=== PATIENT | female | born 2000 | race Caucasian/White ===

== ENCOUNTER 2021-06-12 09:26 | Emergency (ER) | payer MEDICAID ==
[~2021-06-12] VITALS: Ht 167.6 cm; Wt 65.9 kg
[2021-06-12 09:53] VITALS: TEMP 98
[2021-06-12 10:32] LABS: BASO % 0.3 % (0.0-2.0); EOS # 0.1 (0.0-0.7); EOS % 0.6 % (0-4.0); GRAN # 6.9 (1.4-6.5); GRAN % 79.3 % (42.2-75.2); HEMATOCRIT 39.9 % (37.0-47.0); HEMOGLOBIN 13.3 g/dl (12.5-16.0); LYMPH % 11.9 % (20.0-51.0); MEAN CELL VOLUME 86 fl (80.0-100.0); MEAN CORPUSCULAR HEMOGLOBIN 29 pg (27.0-31.0); MEAN CORPUSCULAR HGB CONC 33 g/dl (33.0-37.0); MEAN PLATELET VOLUME 9.5 fl (7.4-10.4); MONO # 0.7 (0.1-0.6); MONO % 7.6 % (1.7-9.3); PLATELET COUNT 352 K/mm3 (130-400); RED BLOOD COUNT 4.66 M/mm3 (4.10-5.30); REDCELL DISTRIBUTION WIDTH-CV 13.5 % (11.5-14.5)
[2021-06-12 10:44] LABS: ALBUMIN 4.4 gm/dL (3.5-5.0); BILIRUBIN,TOTAL 0.4 mg/dL (0.0-1.0); CALCIUM 9.3 mg/dL (8.4-10.2); CREATININE, serum 0.59 (0.52-1.25); POTASSIUM 4.1 mmol/L (3.4-5.0); TOTAL PROTEIN 7.5 gm/dL (6.4-8.2)
[2021-06-12 10:49] LABS: COLLECTION METHOD CLEAN CATCH
[2021-06-12 11:13] LABS: MUCOUS Present /lpf; PH 8 (5-8); URINE APPEARANCE Hazy; URINE BACTERIA None Seen /hpf; URINE BILIRUBIN Negative (NEGATIVE); URINE BLOOD Negative (NEGATIVE); URINE COLOR Yellow; URINE GLUCOSE Negative (NEGATIVE); URINE KETONE 1+ (NEGATIVE); URINE LEUKOCYTE ESTERASE Negative (NEGATIVE); URINE NITRATE Negative (NEGATIVE); URINE PROTEIN(semi-quant) 2+ (NEGATIVE); URINE UROBILINOGEN Negative (NEGATIVE)
[2021-06-12] MEDS ORDERED: REGLAN 10MG10 MG/TAB PO (12:12)
[2021-06-12 12:40] VITALS: BP 99/69; PULSE 66
== END 2021-06-12 12:41 | disposition home or self-care (01) ==
LOC: COL.ER 09:26
PROVIDERS: Emergency Medicine
DX: O21.9 Vomiting of pregnancy, unspecified (principal); Z3A.09 9 weeks gestation of pregnancy
CPT/HCPCS: J2765; J7030

== ENCOUNTER 2023-02-06 17:21 | Outpatient (CLI) | payer MEDICAID ==
[~2023-02-06] VITALS: Ht 167.6 cm; Wt 70.0 kg
[2023-02-06] VITALS (9 sets, daily range): BP systolic 108–131; BP diastolic 67–84; PULSE 75–111; TEMP 97.3–97.6
--- NOTE | 2023-02-06 17:20 | NUR ---
1720 - PATIENT AMBULATORY TO UNIT ACCOMPANIED BY FOB. PATIENT ORIENTED TO ROOM AND CHANGES INTO CHANGE INTO GOWN. 1728 - PATIENT ON MONITOR. PATIENT REPORTS TO LABOR AND DELIVERY WITH COMPLAINTS OF CONTRACTIONS FOR THE LAST 2 HOURS. DENIES BLOODY SHOW. PATIENT UNSURE IF LEAKING FLUID OR INCONTINENCE. PATIENT REPORTS GOOD MOVEMENT. PATIENT IS SCHEDULED FOR REPEAT C/S ON 03/01/23. PATIENT DENIES DESIRE FOR . 1742 - SVE PERFORMED BY LUÍS MOON. -3. AMNIOTRACE NEGATIVE. PLAN OF CARE REVIEWED. PATIENT AGREEABLE TO PLAN. ORAL HYDRATION PROVIDED. 1759 - MD LIGIA NOTIFIED VIA PHONE OF PATIENT ARRIVAL AND ABOVE EXAM. PLAN FOR REPEAT SVE IN 1 HOUR ORDERED BY . CARE ONGOING.
[~2023-02-06 17:21] MED LIST: REGLAN 10MG10 MG/TAB PO; ZOFRAN ODT4 MG PO
[2023-02-06] MEDS ORDERED: ZOLOFT 100MG100 MG PO (18:00)
[2023-02-06] MEDS ORDERED: PRENATAL TABLET PO (18:00)
--- NOTE | 2023-02-06 18:50 | NUR ---
PT SITTING UP TO VOMIT, STRIP BROKEN AND TRACING MATERNAL HR FOR APPROXIMATELY 2 MINUTES.
--- NOTE | 2023-02-06 19:26 | NUR ---
1916- PT SITTING UP AT BEDSIDE VOMITING, 600MLS OUT. 1926- PT STATES NEED TO USE BATHROOM BUT UNSURE IF NEEDS TO VOID OR HAVE BM. SVE PERFORMED, UNCHANGED. PT OFF THE MONITOR TO USE BATHROOM.
--- NOTE | 2023-02-06 21:00 | NUR ---
1950- PT SITTING UP, VOMITING 2035- PT SITTING UP, VOMITING.
--- NOTE | 2023-02-06 21:30 | NUR ---
2109- SITTING UP VOMITING. PT THEN UP TO THE BATHROOM. 2123- PT VOMITING. 2129- PT VOMITING.
--- NOTE | 2023-02-06 21:49 | NUR ---
MONITORING DC'D. MAY DC HOME PER DR. STRONG. PT TO CHANGE INTO OWN CLOTHES WHILE DISCHARGE PAPERWORK PREPARED.
--- NOTE | 2023-02-06 22:15 | NUR ---
DISCHARGE INSTRUCTIONS REVIEWED WITH PT AND FOB. PT CONTINUES TO BE UNCOMFORTABLE BUT IS NO LONGER CRYING WITH IRREGULAR CONTRACTIONS. NOTIFIED THAT SHE MAY HAVE A "STOMACH BUG" PER DR. STRONG. INSTRUCTED TO TAKE SIPS OF WATER, MAY TAKE TYLENOL AND BENADRYL IF NEEDED FOR PAIN AND SLEEP. [facility]CT [facility] IF NAUSEA AND VOMITING CONTINUES FOR 24 HOURS. RETURN TO UNIT IF WATER BREAKS, VAGINAL BLEEDING, OR CONTRACTIONS BECOME MORE CONSISTENT AND PAINFUL AGAIN. PT VERBALIZES UNDERSTANDING. DENIES QUESTIONS OR CONCERNS. OFF UNIT AMBULATORY FOR HOME.
== END 2023-02-06 22:15 | disposition home or self-care (01) ==
LOC: LDRO 17:21
DX: Z34.93 Encounter for supervision of normal pregnancy, unspecified, third trimester (principal); Z3A.35 35 weeks gestation of pregnancy
CPT/HCPCS: J1200; J2405; J3105; J7120

== ENCOUNTER 2023-02-07 02:21 | Inpatient (IN) | payer MEDICAID ==
[~2023-02-07] VITALS: Ht 167.6 cm; Wt 70.5 kg
[2023-02-07] VITALS (29 sets, daily range): BP systolic 99–155; BP diastolic 61–98; PULSE 64–100; TEMP 97.9–98.8
[~2023-02-07 02:21] MED LIST changes: +PRENATAL TABLET PO; +ZOLOFT 100MG100 MG PO
--- NOTE | 2023-02-07 02:25 | NUR ---
PT TO UNIT VIA WHEELCHAIR WITH COMPLAINTS OF CTX THAT HAVE CONTINUED SINCE HER PREVIOUS VISIT EARLIER IN THE EVENING. PT IS VERY UNCONTROLLED, HAVING TROUBLE SITTING STILL WHILE MONITORS ARE BEING PLACED. EFMX2 APPLIED, VS OBTAINED, SVE PERFORMED. PT INTERMITTENTLY VOMITING.
--- NOTE | 2023-02-07 02:38 | NUR ---
PT SITTING UP VOMITING.
--- NOTE | 2023-02-07 03:18 | NUR ---
0312- PHENERGAN 12.5 MG IV RUNNING PIGGYBACK TO LR BOLUS. 0318- CATH UA COLLECTED.
[2023-02-07 03:24] LABS: COLLECTION METHOD CATHETER
[2023-02-07 03:28] LABS: HEMOGLOBIN 11.5 g/dl (12.5-16.0); MEAN CELL VOLUME 83 fl (80.0-100.0); MEAN CORPUSCULAR HEMOGLOBIN 28 pg (27-31); MEAN CORPUSCULAR HGB CONC 33 g/dl (33.0-37.0); MEAN PLATELET VOLUME 10.9 fl (7.4-10.4); PLATELET COUNT 327 K/mm3 (130-400); RED BLOOD COUNT 4.16 M/mm3 (4.10-5.30); REDCELL DISTRIBUTION WIDTH-CV 13.8 % (11.5-14.5)
[2023-02-07 03:31] LABS: HEMATOCRIT 34.7 % (37.0-47.0)
[2023-02-07 03:33] LABS: URINE APPEARANCE Clear (CLEAR/HAZY); URINE BLOOD TRACE-INTACT (NEGATIVE); URINE COLOR Yellow (YELLOW); URINE GLUCOSE Negative (NEGATIVE); URINE KETONE 2+ (NEGATIVE); URINE NITRATE Negative (NEGATIVE); URINE PROTEIN(semi-quant) 2+ (NEGATIVE)
[2023-02-07 03:41] LABS: MUCOUS Present (NOT PRESENT); SQUAMOUS EPITHELIAL 0-2 /hpf (0-10); URINE BACTERIA None Seen /hpf (NONE SEEN)
[2023-02-07 03:50] LABS: BILIRUBIN,TOTAL 0.4 mg/dL (0.2-1.2); CALCIUM 9.4 mg/dL (8.4-10.2); CREATININE, serum 0.72 mg/dL (0.57-1.11); POTASSIUM 3.7 mmol/L (3.5-4.5); TOTAL PROTEIN 6.8 gm/dL (6.2-8.1)
[2023-02-07 03:54] LABS: BAND 8 % (0-10); EOSINOPHIL 10 % (0-4); HYPOCHROMIA 1+; LYMPHOCYTE 4 % (20.0-51.0); NEUTROPHILS 71 % (42.0-75.2); PLATELET ESTIMATE NORMAL (NORMAL)
--- NOTE | 2023-02-07 04:15 | NUR ---
[id number]: GETTING PT PREPARED FOR EPIDURAL PLACEMENT, CURRENTLY SITTING UP AT BEDSIDE. 0408- Loco PAVON CRNA IN ROOM FOR EPIDURAL PLACEMENT. 0411- SINGLE SHOT GIVEN BY Loco PAVON CRNA, PT TOLERATED WELL. 0415- TEST DOSE GIVEN BY Loco PAOVN CRNA, PT TOLERATED WELL.
--- NOTE | 2023-02-07 05:37 | NUR ---
PT OFF MONITORS TO GO TO OR FOR UNSCHEDULED REPEAT C/S.
[2023-02-08 00:55] VITALS: BP 106/68; PULSE 81; TEMP 98.1
[2023-02-08 07:00] VITALS: BP 100/66; PULSE 80; TEMP 98
--- NOTE | 2023-02-08 07:17 | NUR ---
0700 THIS RN TO ROOM FOR AM VITALS/ASSESSMENT. POC REVIEWED, WHITE BOARD UPDATED. QUESTIONS AND CONCERNS INVITED, NONE AT THIS TIME. PT EDUCATED TO CALL OUT IF SHE NEEDS ASSISTANCE OR PAIN MEDS IF NEEDED.
[2023-02-08] MEDS ORDERED: ROXICODONE 55 MG/TAB PO (08:42)
[2023-02-08] MEDS ORDERED: IBU600 MG PO (08:42)
--- NOTE | 2023-02-08 09:53 | NUR ---
Initial visit; Patient thanked Front Desk Assistant for looking in on her and her daughter. Front Desk Assistant offered Congratulations and God's blessings and thanked Nathan for choosing [facility].
[2023-02-08 17:00] VITALS: BP 99/63; PULSE 91
[2023-02-08 20:30] VITALS: BP 106/63; PULSE 89; TEMP 98.4
[2023-02-09 07:30] VITALS: BP 100/69; PULSE 75; TEMP 98.1
--- NOTE | 2023-02-09 14:45 | NUR ---
THIS RN TAKES REPORT DARNELL RAGSDALE RN
[2023-02-09 16:30] VITALS: BP 116/64; PULSE 96; TEMP 98.2
[2023-02-09 20:00] VITALS: BP 110/67; PULSE 67; TEMP 98
[2023-02-10 07:02] VITALS: BP 111/70; PULSE 69; TEMP 97.6
== END 2023-02-10 11:05 | disposition home or self-care (01) | DRG 786 ==
LOC: LDRO 02:21 → LDR 02:50 → LDRO 04:55 → LDR 04:56 → OB 04:56
PROVIDERS: ADMIT Obstetrics & Gynecology
PROC: 10D00Z1 Extraction of Products of Conception, Low, Open Approach (ICD-10-PCS; principal; 2023-02-07)
DX: O34.211 Maternal care for low transverse scar from previous cesarean delivery (principal); O60.14X0 Preterm labor third trimester with preterm delivery third trimester, not applicable or unspecified; O99.343 Other mental disorders complicating pregnancy, third trimester; F32.A Depression, unspecified; Z3A.35 35 weeks gestation of pregnancy; Z37.0 Single live birth
CPT/HCPCS: J0456; J0690; J1100; J1885; J2210; J2250; J2401; J2590; J2795; J7050